=== PATIENT | male | born 1980 | race Hispanic/Latino ===

== ENCOUNTER 2019-05-21 15:38 | Emergency (ER) | payer SELFPAY ==
[2019-05-21] MEDS ORDERED: LIDOCAINE 1% W/EPI 1:100,000 MDV 20 ML VIAL ONE (15:57)
--- NOTE | 2019-05-21 16:34 | ER ---
Nurse's Notes [facility] Name: Massimo Zafar Age: 38 yrs Sex: Male : 1980 Arrival Date: 05/21/2019 Time: 15:40 Bed 5 Private MD: Diagnosis: Laceration without foreign body, left forearm\E\ Presentation: 05/21 15:41 Presenting complaint: states: He accidentally cut himself with a knife <30 minutes ca1 ago while at work. Transition of care: patient was not received from another setting of care. Onset of symptoms was May 21, 2019. Risk Assessment: Do you want to hurt yourself or someone else? Patient reports no desire to harm self or others. Initial Sepsis Screen: Does the patient meet any 2 criteria? No. Patient's initial sepsis screen is negative. Does the patient have a suspected source of infection? No. Patient's initial sepsis screen is negative. Care prior to arrival: None. 15:41 Method Of Arrival: Ambulatory ca1 15:41 Acuity: NARENDRA 4 ca1 Historical: - Allergies: 15:43 No Known Allergies; ca1 - Immunization history:: Adult Immunizations up to date, Last tetanus immunization: < 5 years ago. - Coronavirus screen:: The patient has NOT traveled to [place], [place], or [place] in the past 14 days. The patient has NOT had contact with known/suspected case of Coronavirus?. - Social history:: Smoking status: Patient denies any tobacco usage or history of. - Ebola Screening: : Patient negative for fever greater than or equal to 101.5 degrees Fahrenheit, and additional compatible Ebola Virus Disease symptoms Patient denies exposure to infectious person Patient denies travel to an Ebola-affected area in the 21 days before illness onset No symptoms or risks identified at this time. Screenin:01 Abuse screen: Denies threats or abuse. Denies injuries from another. Nutritional ph screening: No deficits noted. Tuberculosis screening: No symptoms or risk factors identified. Fall Risk None identified. Assessment: 16:00 General: Appears in no apparent distress. comfortable, slender, well groomed, Behavior ph is calm, cooperative, appropriate for age. Pain: Complains of pain in dorsal aspect of left forearm. Neuro: Level of Consciousness is awake, alert, obeys commands, Oriented to person, place, time, situation. Cardiovascular: Capillary refill < 3 seconds in bilateral fingers Patient's skin is warm and dry. Respiratory: Airway is patent Respiratory effort is even, unlabored, Respiratory pattern is regular, symmetrical. Derm: Skin is healthy with good turgor, Skin is pink, warm \T\ dry. Musculoskeletal: Circulation, motion, and sensation intact. Range of motion: intact in all extremities. Injury Description: Laceration sustained to dorsal aspect of left forearm is clean, not bleeding. Vital Signs: 15:43 BP 131 / 80; Pulse 67; Resp 18 S; Temp 97.2(O); Pulse Ox 99% on R/A; Weight 96.62 kg ca1 (R); Height 6 ft. 2 in. (187.96 cm) (R); Pain 4/10; 15:43 Body Mass Index 27.35 (96.62 kg, 187.96 cm) ca1 ED Course: 15:40 Patient arrived in ED. as 15:42 David Wagoner FNP-C is [facility]. la1 15:42 Tal Leyva MD is Attending Physician. la1 15:42 Triage completed. ca1 15:43 Arm band placed on right wrist. ca1 15:49 Cindi Yeung, RN is Primary Nurse. ph 16:01 Patient has correct armband on for positive identification. Bed in low position. Call ph light in reach. Side rails up X 1. Door closed. Noise minimized. 16:57 Assist provider with laceration repair on left arm and dorsal aspect of left forearm ph that was between 2.6 to 7.5 cm using sutures. Set up tray. Performed by David HU Dressed with 4X4s, Kerlix, Neosporin, Patient tolerated well. Patient did not have IV access during this emergency room visit. Administered Medications: 16:25 Drug: Lidocaine-Epinephrine -1%: (1:100,000) 20 ml Volume: 20 ml; Route: Infiltration; ph 17:02 Follow up: Response: No adverse reaction ph Outcome: 16:34 Discharge ordered by . la1 17:01 Discharged to home ambulatory, with significant other. ph 17:01 Condition: good 17:01 Discharge instructions given to patient, significant other, Instructed on discharge instructions, follow up and referral plans. wound care, Demonstrated understanding of instructions, follow-up care, wound care. 17:02 Patient left the ED. ph Signatures: Marsha Eden Lee, STITCH BONDING MACHINE DRAWER IN-C STITCH BONDING MACHINE DRAWER IN-Cla1 Cindi Yeung, RN RN ph Lesley Sweeney RN RN ca1
--- NOTE | 2019-05-21 16:34 | EDPHYS ---
Physician Documentation [facility] Name: Massimo Zafar Age: 38 yrs Sex: Male : 1980 Arrival Date: 05/21/2019 Time: 15:40 Bed 5 Private MD: ED Physician Tal Leyva HPI: 05/21 16:35 This 38 yrs old Male presents to ER via Ambulatory with complaints of la1 Laceration To Arm. 16:35 The patient has a laceration related to: working, occurred at work, and there are no la1 complicating factors. The injury was self inflicted. The laceration(s) is(are) located on the dorsal aspect of left forearm. Onset: The symptoms/episode began/occurred just prior to arrival. Associated signs and symptoms: The patient has no apparent associated signs or symptoms. The patient has not experienced similar symptoms in the past. pt accidently cut forearm with a utility knife. Historical: - Allergies: 15:43 No Known Allergies; ca1 - Immunization history:: Adult Immunizations up to date, Last tetanus immunization: < 5 years ago. - Coronavirus screen:: The patient has NOT traveled to [place], [place], or [place] in the past 14 days. The patient has NOT had contact with known/suspected case of Coronavirus?. - Social history:: Smoking status: Patient denies any tobacco usage or history of. - Ebola Screening: : Patient negative for fever greater than or equal to 101.5 degrees Fahrenheit, and additional compatible Ebola Virus Disease symptoms Patient denies exposure to infectious person Patient denies travel to an Ebola-affected area in the 21 days before illness onset No symptoms or risks identified at this time. ROS: 16:36 Constitutional: Negative for fever, chills, and weight loss, Eyes: Negative for injury, la1 pain, redness, and discharge, ENT: Negative for injury, pain, and discharge, Neck: Negative for injury, pain, and swelling, Cardiovascular: Negative for chest pain, palpitations, and edema, Respiratory: Negative for shortness of breath, cough, wheezing, and pleuritic chest pain, Abdomen/GI: Negative for abdominal pain, nausea, vomiting, diarrhea, and constipation, Back: Negative for injury and pain, MS/Extremity: Negative for injury and deformity. 16:36 Neuro: Negative for headache, weakness, numbness, tingling, and seizure. 16:36 Skin: Positive for laceration(s), of the dorsal aspect of left forearm. Exam: 16:36 Constitutional: This is a well developed, well nourished patient who is awake, alert, la1 and in no acute distress. Head/Face: Normocephalic, atraumatic. Eyes: Periorbital areas with no swelling, redness, or edema. ENT: Mucous membranes moist. Chest/axilla: Normal chest wall appearance and motion. Cardiovascular: No pulse deficits. Respiratory: Beto No increased work of breathing. Skin: Warm, dry with normal turgor. Normal color with no rashes, no lesions, and no evidence of cellulitis. MS/ Extremity: Pulses equal, no cyanosis. Neurovascular intact. Full, normal range of motion. 16:36 Musculoskeletal/extremity: Extremities: noted in the dorsal aspect of left forearm: laceration, ROM: no acute changes, intact in all extremities, Pulses: noted to be 3+ in the right radial artery and left radial artery, Sensation intact. Vital Signs: 15:43 BP 131 / 80; Pulse 67; Resp 18 S; Temp 97.2(O); Pulse Ox 99% on R/A; Weight 96.62 kg ca1 (R); Height 6 ft. 2 in. (187.96 cm) (R); Pain 4/10; 15:43 Body Mass Index 27.35 (96.62 kg, 187.96 cm) ca1 Laceration: 16:31 Wound Repair of 6cm ( 2.4in ) subcutaneous laceration to dorsal aspect of left forearm. la1 Linear shaped.. Minimal contamination.. Distal neuro/vascular/tendon intact. Anesthesia: Local anesthetic administered with 6 mls of 1% lidocaine w/ Epi. Wound prep: Extensive cleansing, Wound irrigation by me. Skin closed with 7 4-0 Prolene using simple sutures and sterile technique. Dressed with 4x4's. Patient tolerated well. MDM: 15:45 Patient medically screened. la1 16:37 Data reviewed: vital signs, nurses notes. Data interpreted: Pulse oximetry: on room air la1 is 99 %. Interpretation: normal. Counseling: I had a detailed discussion with the patient and/or guardian regarding: the historical points, exam findings, and any diagnostic results supporting the discharge/admit diagnosis, the need for outpatient follow up, a family practitioner, to return to the emergency department if symptoms worsen or persist or if there are any questions or concerns that arise at home. Response to treatment: the patient's symptoms have markedly improved after treatment, and as a result, I will discharge patient. Special discussion: I discussed with the patient/guardian that the patient's current presentation does not indicate dosing of antibiotics. They should follow-up with their primary care provider and return if the symptoms persist or progress. 05/21 16:24 Order name: Dressing - Wound; Complete Time: 17:02 ph 05/21 16:24 Order name: Gloves, Sterile; Complete Time: 16:24 ph 05/21 16:24 Order name: Setup Suture Tray; Complete Time: 16:24 ph Administered Medications: 16:25 Drug: Lidocaine-Epinephrine -1%: (1:100,000) 20 ml Volume: 20 ml; Route: Infiltration; ph 17:02 Follow up: Response: No adverse reaction ph Disposition: 17:10 Co-signature as Attending Physician, Tal Leyva MD. rn Disposition: 05/21/19 16:34 Discharged to Home. Impression: Laceration without foreign body, left forearm\E\. - Condition is Stable. - Discharge Instructions: Laceration Care, Adult, Sutured Wound Care. - Medication Reconciliation Form, Thank You Letter, Antibiotic Education form. - Follow up: Private Physician; When: 2 - 3 days; Reason: Recheck today's complaints, Re-evaluation by your physician. - Problem is new. - Symptoms have improved. - Notes: please have sutures removed around 7-10 days Signatures: Tal Leyva MD MD rn David Wagoner, CLINICAL SCIENCE LIAISON-C CLINICAL SCIENCE LIAISON-Cla1 Cindi Yeung RN RN ph Lesley Sweeney RN RN ca1 Corrections: (The following items were deleted from the chart) 16:33 16:32 Dressing - Wound ordered. la1 la1 17:02 16:34 05/21/2019 16:34 Discharged to Home. Impression: Laceration without foreign body, ph left forearm\E\. Condition is Stable. Forms are Medication Reconciliation Form, Thank You Letter, Antibiotic Education, Prescription Opioid Use. Follow up: Private Physician; When: 2 - 3 days; Reason: Recheck today's complaints, Re-evaluation by your physician. Problem is new. Symptoms have improved. la1
[2019-05-21 20:40] VITALS: BP 131/80; TEMP 97.2; O2SAT 99
== END 2019-05-21 17:02 | disposition home or self-care (01) ==
LOC: ER 15:38
PROC: 0JQH0ZZ Repair Left Lower Arm Subcutaneous Tissue and Fascia, Open Approach (ICD-10-PCS; principal; 2019-05-21)
DX: S51.812A Laceration without foreign body of left forearm, initial encounter (principal); W26.0XXA Contact with knife, initial encounter; Y93.9 Activity, unspecified; Y92.89 Other specified places as the place of occurrence of the external cause; Y99.0 Civilian activity done for income or pay
CPT/HCPCS: 99283